=== PATIENT | female | born 1935 | race Caucasian/White ===

== ENCOUNTER 2016-12-15 13:11 | Emergency (ER) | payer OTHER ==
[~2016-12-15] VITALS: Ht 160 cm; Wt 114.0 kg
[~2016-12-15 13:11] MED LIST: CELE200; COLA50CA; DICL-86 PO; HYDR10TA16; LORT5TAB PO; PROT40TA; TOPR25TA2; VESICARE
[2016-12-15 13:14] VITALS: PULSE 65; RESP 18; TEMP 97.6; O2SAT 94
[2016-12-15 13:40] VITALS: BP 157/69; PULSE 62; RESP 18; TEMP 97.6; O2SAT 95
--- NOTE | 2016-12-15 13:41 | PD ---
HPI Chief Complaint: Pain: Acute or Chronic Time Seen by Provider: 13:20 Travel History International Travel<30 days: No Contact w/Intl Traveler<30days: No Traveled to known affect area: No History of Present Illness HPI This 81-year-old female is complaining of pain in her left leg. She's had it off and on for a while but she says the last 3 nights the pain is been quite severe and estimated difficult for her to sleep. There is no history of trauma. The pain is aggravated when she lays on her left side. She is able to bear weight in fact walking seems to alleviate the pain somewhat. There is no pain in the back. There is no numbness or tingling in the leg. There is no numbness or tingling in the leg. She was treated for breast cancer about 6 years ago. She had a lumpectomy followed by radiation and medication for 5 years PFSH Past Medical History Diminished Hearing: No Genitourinary: Yes (RENAL ANEURYSM) Hypertension: Yes Past Surgical History Appendectomy: Yes (1977) Hysterectomy: Yes (1977) Social History Alcohol Use: No Tobacco Use: No Substance Use: No Allergies-Medications (Allergen,Severity, Reaction): Coded Allergies: No Known Allergies (Verified , NONE, 12/15/16) Reported Meds & Prescriptions Reported Meds & Active Scripts Active Reported Zyrtec (Cetirizine HCl) 10 Mg Capsule 1 Tab PO DAILY Aspirin Low Dose (Aspirin) 81 Mg Chew 162 Mg CHEW DAILY Metoprolol Tartrate 25 Mg Tab 25 Mg PO BID Amlodipine (Amlodipine Besylate) 5 Mg Tab 5 Mg PO DAILY Pantoprazole (Pantoprazole Sodium) 40 Mg Tab 40 Mg PO DAILY Lisinopril 10 Mg Tab 10 Mg PO DAILY Vesicare (Solifenacin) 10 Mg Tab 10 Mg PO HS Review of Systems General / Constitutional: No: Fever, Chills Eyes: No: Diploplia HENT: No: Headaches, Vertigo Cardiovascular: No: Chest Pain or Discomfort, Palpitations Respiratory: No: Cough, Shortness of Breath Gastrointestinal: No: Nausea, Vomiting Genitourinary: No: Frequency, Dysuria Musculoskeletal: Positive: Myalgias, Pain, No: Arthralgias Skin: No Rash, No Itching Neurologic: No: Weakness, Dizziness Hematologic/Lymphatic: No: Easy Bruising Physical Exam Narrative GENERAL: Well-developed female SKIN: Focused skin assessment warm/dry. HEAD: Atraumatic. Normocephalic. EYES: Pupils equal and round. No scleral icterus. No injection or drainage. ENT: No nasal bleeding or discharge. Mucous membranes pink and moist. NECK: Trachea midline. No JVD. CARDIOVASCULAR: Regular rate and rhythm. No murmur appreciated. RESPIRATORY: No accessory muscle use. Clear to auscultation. Breath sounds equal bilaterally. GASTROINTESTINAL: Abdomen soft, non-tender, nondistended. Hepatic and splenic margins not palpable. MUSCULOSKELETAL: No obvious deformities. No clubbing. No cyanosis. No edema. There is tenderness in the midportion of the left thigh. There is no discernible swelling or deformity. There is no warmth or erythema NEUROLOGICAL: Awake and alert. No obvious cranial nerve deficits. Motor grossly within normal limits. Normal speech. PSYCHIATRIC: Appropriate mood and affect; insight and judgment normal. Data Data Last Documented VS Vital Signs Date Time Temp Pulse Resp B/P (MAP) Pulse Ox O2 Delivery O2 Flow Rate FiO2 12/15/16 13:40 97.6 62 18 157/69 (98) 95 Room Air Orders Orders Femur (Ap & Lat/2vws) (12/15/16 13:35) Us Leg Venous Doppler (12/15/16 14:02) MDM Medical Decision Making Medical Screen Exam Complete: Yes Emergency Medical Condition: Yes Medical Record Reviewed: Yes Differential Diagnosis Differential diagnosis includes DVT, bony lesion, pathologic fracture Narrative Course Patient x-ray of the left femur is negative for bony lesion. Ultrasound leg is also negative. Etiology for the pain has not been determined. This may be a self-limited problem but if this symptoms persist she needs further evaluation. I will prescribe some Lortab as her main complaint is pain which is keeping her awake Diagnosis Primary Impression: Leg pain, left Scripts Hydrocodone-Acetaminophen (Lortab) 5-325 Mg Tab 1-2 TAB PO Q6H Y for PAIN for 30 Days, TAB 0 Refills Prov: Al Verdin MD 12/15/16 Disposition: 01 DISCHARGE HOME Condition: Stable Al Verdin MD Dec 15, 2016 13:40
[2016-12-15] MEDS ORDERED: LISI10TA3 PO (13:48)
[2016-12-15] MEDS ORDERED: CETI10CA3 PO (13:48)
[2016-12-15] MEDS ORDERED: AMLO5TAB2 PO (13:48)
[2016-12-15] MEDS ORDERED: VESI10TA PO (13:48)
[2016-12-15] MEDS ORDERED: ASPI81CH37 CHEW (13:48)
[2016-12-15] MEDS ORDERED: METO25TA3 PO (13:48)
[2016-12-15] MEDS ORDERED: PANT40TA3 PO (13:48)
--- NOTE | 2016-12-15 14:23 | RADRPT ---
EXAM DATE/TIME: 12/15/2016 13:48 [facility] COMPARISON: No previous studies available for comparison. INDICATIONS : Left leg pain with no known injury. MEDICAL HISTORY : None. SURGICAL HISTORY : Total knee replacement, left. ENCOUNTER: Initial ACUITY: 1 day PAIN SCORE: 4/10 LOCATION: Left upper femur FINDINGS: Two view examination of the left femur demonstrates no evidence of fracture or dislocation. Bony min eralization is normal. Total knee is noted. The soft tissue structures are intact. CONCLUSION: History of total knee otherwise negative. Nj Jacob MD FACR on December 15, 2016 at 14:21 Board Certified Radiologist. This report was verified electronically.
--- NOTE | 2016-12-15 14:35 | RADRPT ---
EXAM DATE/TIME: 12/15/2016 14:06 [facility] COMPARISON: No previous studies available for comparison. INDICATIONS : Left leg pain. MEDICAL HISTORY : Hypertension. Gastroesophageal reflux disease. Carcinoma, breast. Renal aneurysm. SURGICAL HISTORY : Appendectomy. Cholecystectomy. Hysterectomy. Bilateral knee replacements. Radiation therapy. ENCOUNTER: Initial ACUITY: 3 days PAIN SCORE: 8/10 LOCATION: Left leg. TECHNIQUE: Venous ultrasound of the leg was performed from the inguinal ligament to the proximal calf. Real-ester e, color Doppler and spectral tracing, compression and augmentation techniques were used. FINDINGS: There is normal compressibility of the deep venous system from the inguinal region to the proximal ca lf. No echogenic clot is seen in the lumen of the common femoral, femoral, popliteal, and posterior tibial veins. There is a normal response of the venous system to proximal and distal augmentation an d respiration. CONCLUSION: Normal examination. Eleazar Lopez MD on December 15, 2016 at 14:33 Board Certified Radiologist. This report was verified electronically.
[2016-12-15] MEDS ORDERED: HYDR-3533 PO (14:52)
[2016-12-15 15:30] VITALS: BP 147/71
== END 2016-12-15 15:35 | disposition home or self-care (01) ==
LOC: PHED 13:11
DX: M79.605 Pain in left leg (principal)
CPT/HCPCS: 73552; 93971; 99284